=== PATIENT | female | born 1995 | race Caucasian/White ===

== ENCOUNTER 2018-12-14 12:51 | Emergency (ER) | payer OTHER ==
[2018-12-14 12:57] VITALS: BP 116/72
[2018-12-14] MEDS ORDERED: ACETAMINOPHEN 325 MG TABLET PO ONE (13:16)
[2018-12-14] MEDS ORDERED: PSEUDOEPHEDRINE HCL 30 MG TABLET PO ONE (13:17)
[2018-12-14] MEDS ORDERED: GUAIFENESIN 600 MG TABLET.SA PO ONE (13:17)
[2018-12-14] MEDS ORDERED: LORATADINE 10 MG TABLET PO ONE (13:17)
--- NOTE | 2018-12-14 14:12 | ER Document Report ---
ED ENT - General Chief Complaint: Cold Symptoms Stated Complaint: SORE THROAT Time Seen by Provider: 12/14/18 13:04 Mode of Arrival: Ambulatory Information source: Patient Notes: 23-year-old female presented to ED for complaint of cough cold congestion sore throat fever and chills since yesterday. She states she has had nasal drainage with a sore throat. She states she would like to be tested for strep as she feels that her throat is tooth or sore to be just a cold. Patient is alert oriented respirations regular and unlabored speaking in full sentences. She is afebrile at this time. TRAVEL OUTSIDE OF THE [place] IN LAST 30 DAYS: No - HPI Patient complains to provider of: Ear problem, Nose problem, Throat problem Onset: Yesterday Onset/Duration: Intermittent Quality of pain: Achy, Sharp Severity: Mild Pain Level: 2 Context: Recent Illness Location of pain: Ears, Nose, Sinus, Throat Associated symptoms: Chills, Congestion, Cough, Ear pain - Pressure, Runny nose, Sinus pain, Sinus drainage, Sore throat. denies: Fever Similar symptoms previously: No Recently seen / treated by doctor: No - Related Data Allergies/Adverse Reactions: No Known Allergies Allergy (Verified 12/14/18 12:52) Past Medical History - General Information source: Patient - Social History Smoking Status: Former Smoker Chew tobacco use (# tins/day): No Frequency of alcohol use: None Drug Abuse: None Occupation: [employer] Lives with: Family Family History: Reviewed & Not Pertinent Patient has suicidal ideation: No Patient has homicidal ideation: No - Past Medical History Cardiac Medical History: Reports: None Pulmonary Medical History: Reports: Hx Bronchitis EENT Medical History: Reports: None Neurological Medical History: Reports: None Endocrine Medical History: Reports: None Renal/ Medical History: Reports: None Malignancy Medical History: Reports: None GI Medical History: Reports: None Musculoskeletal Medical History: Reports None Skin Medical History: Reports None Psychiatric Medical History: Reports: None Traumatic Medical History: Reports: None Infectious Medical History: Reports: None Past Surgical History: Reports: Hx Section - Immunizations Immunizations up to date: Yes Hx Diphtheria, Pertussis, Tetanus Vaccination: Yes Review of Systems - Review of Systems Constitutional: Chills, Recent illness EENT: Ear pain, Nose discharge, Sinus pressure, Sinus discharge, Throat pain Cardiovascular: No symptoms reported Respiratory: Cough Gastrointestinal: No symptoms reported Genitourinary: No symptoms reported Female Genitourinary: No symptoms reported Musculoskeletal: No symptoms reported Skin: No symptoms reported Hematologic/Lymphatic: No symptoms reported Neurological/Psychological: No symptoms reported -: Yes All other systems reviewed and negative Physical Exam - Vital signs Vitals: Temp Pulse Resp BP Pulse Ox 98.1 F 84 16 116/72 99 12/14/18 12:55 12/14/18 12:55 12/14/18 12:55 12/14/18 12:55 12/14/18 12:55 Interpretation: Normal - General General appearance: Appears well, Alert - HEENT Head: Normocephalic, Atraumatic Eyes: Normal Pupils: PERRL Ears: Normal External canal: Normal Tympanic membrane: Normal Sinus: Normal Nasal: Purulent discharge, Swelling Mouth/Lips: Normal Mucous membranes: Normal Pharynx: Erythema, Post nasal drainage. No: Exudate, Tonsillar hypertrophy Neck: Normal - Respiratory Respiratory status: No respiratory distress Chest status: Nontender Breath sounds: Normal, Nonproductive cough Chest palpation: Normal - Cardiovascular Rhythm: Regular Heart sounds: Normal auscultation Murmur: No - Abdominal Inspection: Normal Distension: No distension Bowel sounds: Normal Tenderness: Nontender Organomegaly: No organomegaly - Back Back: Normal, Nontender - Extremities General upper extremity: Normal inspection, Nontender, Normal color, Normal ROM, Normal temperature General lower extremity: Normal inspection, Nontender, Normal color, Normal ROM, Normal temperature, Normal weight bearing. No: Shady's sign - Neurological Neuro grossly intact: Yes Cognition: Normal Orientation: AAOx4 Edd Coma Scale Eye Opening: Spontaneous [place] Coma Scale Verbal: Oriented Edd Coma Scale Motor: Obeys Commands [place] Coma Scale Total: 15 Speech: Normal Motor strength normal: LUE, RUE, LLE, RLE Sensory: Normal - Psychological Associated symptoms: Normal affect, Normal mood - Skin Skin Temperature: Warm Skin Moisture: Dry Skin Color: Normal Course - Re-evaluation Re-evalutation: 12/14/18 14:10 After performing a Medical Screening Examination, I estimate there is LOW risk for ACUTE CORONARY SYNDROME, RESPIRATORY FAILURE, SEPSIS OR MENINGITIS, thus I consider the discharge disposition reasonable. I have reevaluated this patient multiple times and no significant life threatening changes are noted. The patient and I have discussed the diagnosis and risks, and we agree with discharging home with close follow-up. We also discussed returning to the Emergency Department immediately if new or worsening symptoms occur. We have discussed the symptoms which are most concerning (e.g., changing or worsening pain, trouble swallowing or breathing, neck stiffness, fever) that necessitate immediate return. - Vital Signs Vital signs: Temp Pulse Resp BP Pulse Ox 98.1 F 84 16 116/72 99 12/14/18 12:55 12/14/18 12:55 12/14/18 12:55 12/14/18 12:55 12/14/18 12:55 Discharge - Discharge Clinical Impression: Viral sore throat URI (upper respiratory infection) Qualifiers: URI type: unspecified viral URI Qualified Code(s): J06.9 - Acute upper respiratory infection, unspecified Condition: Stable Disposition: HOME, SELF-CARE Additional Instructions: SORE THROAT: Sore throats may be caused by viruses, bacteria, or fungi. Most are due to a virus, and must get better on their own. Bacterial sore throats, particularly those due to "strep," need treatment with antibiotics. If an antibiotic is prescribed, be sure to take the medication for a full 10 days. Failure to take the antibiotic can result in complications such as rheumatic fever. Sometimes, an injection of antibiotics is given instead of pills or liquid. This single "shot" is equal in effectiveness to the oral medication. To relieve symptoms, take acetaminophen for pain. Sip clear liquids frequently, or eat popsicles or ice chips. Anesthetic sprays or lozenges may help. Make sure the air in the room is not too dry. Avoid using decongestants or antihistamines. Call the doctor if there is no improvement in two days, or if you have difficulty breathing, increasing throat pain, high fever, rash, or frequent vomiting. UPPER RESPIRATORY ILLNESS: You have a viral infection of the respiratory passages -- a "cold." This common infection causes nasal congestion, drainage, and often sore throat and cough. It is highly contagious. The disease usually lasts about 10 to 14 days. There is no "cure" for the viral infection -- it must run its course. If there is a complication, such as bacterial infection in the nose, sinuses, middle ear, or bronchial tubes, antibiotics may be required. The antibiotics won't affect the virus. Drink plenty of fluids. A humidifier may help. An expectorant medication or decongestant may make you more comfortable. Use acetaminophen or ibuprofen for fever or aches. See the doctor if fever persists over two days, if there is any significant worsening of your symptoms, or if you simply fail to improve as expected. USE OF ACETAMINOPHEN (Tylenol): Acetaminophen may be taken for pain relief or fever control. It's much safer than aspirin, offering a wider range of "safe" dosages. It is safe during . Some brand names are Tylenol, Panadol, Datril, Anacin 3, Tempra, and Liquiprin. Acetaminophen can be repeated every four hours. The following are maximum recommended dosages: >89 pounds or adults 650 mg to 900 mg Acetaminophen can be repeated every four hours. Maximum dose not to exceed 4000 mg a day. Claritin 10 mg, Mucinex 600 mg, Sudafed 30 mg and ibuprofen 600 mg will help with your cough cold congestion symptoms. You can also use salt and soda solution gargles as well as Chloraseptic spray and Flonase. These are all [id number] medications. Salt and soda solution 1 quart of water 1 tablespoon of salt 1 teaspoon of baking soda Mixed 3 ingredients together and boil for 1 minute Placed in a covered quart jar Use 1/2 ounce of cold solution to gargle 3 times a day FOLLOW-UP CARE: If you have been referred to a physician for follow-up care, call the physicians office for an appointment as you were instructed or within the next two days. If you experience worsening or a significant change in your symptoms, notify the physician immediately or return to the Emergency Department at any time for re-evaluation. Forms: Return to Work
== END 2018-12-14 14:35 | disposition home or self-care (01) ==
LOC: ER 12:51
DX: J02.8 Acute pharyngitis due to other specified organisms (principal); B97.89 Other viral agents as the cause of diseases classified elsewhere; R05 Cough; R50.9 Fever, unspecified; H92.09 Otalgia, unspecified ear; J34.89 Other specified disorders of nose and nasal sinuses; Z87.891 Personal history of nicotine dependence; R09.82 Postnasal drip
CPT/HCPCS: 87070; 87880; 99283

== ENCOUNTER 2019-08-21 09:33 | Emergency (ER) | payer OTHER ==
--- NOTE | 2019-08-21 10:00 | ER Document Report ---
ED Medical Screen (RME) - General Chief Complaint: Vag Bleeding, +preg <12wks Stated Complaint: BLEEDING WITH Time Seen by Provider: 08/21/19 09:52 Notes: Patient is a G2, P1 23-year-old female who presents emergency department with v aginal bleeding. Patient states that she is 6 weeks and 2 days. Last menstrual cycle was July 09. Patient has history of preeclampsia from her previous . Patient denies any clots, but states that she started bleeding 2 days ago. Patient states that has been on and off and when she wipes she sees blood on the toilet paper. Exam: Soft, nontender abdomen. I have greeted and performed a rapid initial assessment of this patient. A comprehensive ED assessment and evaluation of the patient, analysis of test results and completion of medical decision making process will be conducted by an additional ED providers. TRAVEL OUTSIDE OF THE [place] IN LAST 30 DAYS: No - Related Data Allergies/Adverse Reactions: No Known Allergies Allergy (Verified 12/14/18 12:52) Past Medical History - Social History Chew tobacco use (# tins/day): No Frequency of alcohol use: None Drug Abuse: None Pulmonary Medical History: Reports: Hx Bronchitis Renal/ Medical History: Denies: Hx Peritoneal Dialysis Past Surgical History: Reports: Hx Section - Immunizations Immunizations up to date: Yes Hx Diphtheria, Pertussis, Tetanus Vaccination: Yes Physical Exam - Vital signs Vitals: Temp Pulse Resp BP Pulse Ox 98.0 F 83 14 126/68 H 100 08/21/19 09:40 08/21/19 09:40 08/21/19 09:40 08/21/19 09:40 08/21/19 09:40 Course - Vital Signs Vital signs: Temp Pulse Resp BP Pulse Ox 98.0 F 83 14 126/68 H 100 08/21/19 09:40 08/21/19 09:40 08/21/19 09:40 08/21/19 09:40 08/21/19 09:40
[2019-08-21 10:24] LABS: ABSOLUTE BASOPHILS # (AUTO) 0.1 10^3/uL (0.0-0.2); ABSOLUTE EOSINOPHILS # (AUTO) 0.1 10^3/uL (0.0-0.6); ABSOLUTE LYMPHOCYTES (AUTO) 2.7 10^3/uL (0.5-4.7); ABSOLUTE MONOCYTES (AUTO) 0.4 10^3/uL (0.1-1.4); ABSOLUTE NEUT (AUTO) 5.9 10^3/uL (1.7-8.2); BASOPHILS % (AUTO) 0.9 % (0-2); EOSINOPHILS % (AUTO) 1.3 % (0-6); HEMATOCRIT 39.7 % (36.0-47.0); HEMOGLOBIN 13.4 g/dL (12.0-15.5); MEAN CORPUSCULAR HEMOGLOBIN 28.1 pg (27.0-33.4); MEAN CORPUSCULAR HGB CONC 33.7 g/dL (32.0-36.0); MEAN CORPUSCULAR VOLUME 83 fl (80-97); MONOCYTES % (AUTO) 4.5 % (3-13); PLATELET COUNT 357 10^3/uL (150-450); RED BLOOD COUNT 4.77 10^6/uL (3.72-5.28); RED CELL DISTRIBUTION WIDTH 14.6 % (11.5-14.0); SEGMENTED NEUTROPHILS % (AUTO) 64.3 % (42-78); TOTAL CELLS COUNTED % (AUTO) 100 %; WHITE BLOOD COUNT 9.2 10^3/uL (4.0-10.5)
[2019-08-21 10:43] LABS: ANION GAP 9 (5-19); BLOOD UREA NITROGEN 10 mg/dL (7-20); CALCIUM 9.9 mg/dL (8.4-10.2); CARBON DIOXIDE 26 mmol/L (22-30); CHLORIDE 104 mmol/L (98-107); GLUCOSE 94 mg/dL (75-110)
[2019-08-21 11:08] LABS: APPEARANCE,URINE CLEAR; BILIRUBIN,URINE NEGATIVE (NEGATIVE); COLOR,URINE YELLOW; GLUCOSE, URINE NEGATIVE (NEGATIVE); KETONES,URINE NEGATIVE (NEGATIVE); PROTEIN,URINE NEGATIVE (NEGATIVE); URINE SPECIFIC GRAVITY 1.023; UROBILINOGEN,URINE NEGATIVE mg/dL (<2.0)
--- NOTE | 2019-08-21 12:00 | ER Document Report ---
ED General - General Chief Complaint: Vag Bleeding, +preg <12wks Stated Complaint: BLEEDING WITH Time Seen by Provider: 08/21/19 09:52 Primary Care Provider: ARNALDO CALLAHAN MD [ACTIVE STAFF] - 08/23/19 Mode of Arrival: Ambulatory Information source: Patient Notes: This 23-year-old female presents emergency department with complaints that she is noticed blood when she wipes on and off for the past few weeks. Denies pain with void. She does complain of some light abdominal cramping but feels like it is more like gas. Denies pain at this time. Reports she had preeclampsia with the first but this she is eating and drinking healthy foods. Denies trauma, fever vomiting diarrhea. Reports she took 3 home test that were positive and then went to the [facility] had a positive test there also. Last menstrual period was July 09. TRAVEL OUTSIDE OF THE [place] IN LAST 30 DAYS: No - HPI Onset: Other - For the past few weeks on and off Quality of pain: Cramping Severity: None Pain Level: Denies Associated symptoms: None Exacerbated by: Denies Relieved by: Denies Similar symptoms previously: No Recently seen / treated by doctor: No - Related Data Allergies/Adverse Reactions: No Known Allergies Allergy (Verified 12/14/18 12:52) Past Medical History - General Information source: Patient Last Menstrual Period: 07/09/19 - Social History Smoking Status: Never Smoker Chew tobacco use (# tins/day): No Frequency of alcohol use: None Drug Abuse: None Lives with: Family Family History: Reviewed & Not Pertinent Patient has suicidal ideation: No Patient has homicidal ideation: No Pulmonary Medical History: Reports: Hx Bronchitis Neurological Medical History: Reports: Other - Preeclamptic Renal/ Medical History: Denies: Hx Peritoneal Dialysis Past Surgical History: Reports: Hx Section - Immunizations Immunizations up to date: Yes Hx Diphtheria, Pertussis, Tetanus Vaccination: Yes Review of Systems - Review of Systems Notes: Review HPI for review of systems., All other systems negative Physical Exam - Vital signs Vitals: Temp Pulse Resp BP Pulse Ox 98.0 F 83 14 126/68 H 100 08/21/19 09:40 08/21/19 09:40 08/21/19 09:40 08/21/19 09:40 08/21/19 09:40 - General General appearance: Appears well, Alert In distress: None - HEENT Head: Normocephalic, Atraumatic Eyes: Normal Conjunctiva: Normal Extraocular movements intact: Yes Nasal: Normal Mouth/Lips: Normal Mucous membranes: Moist Neck: Normal, Supple. No: Lymphadenopathy - Respiratory Respiratory status: No respiratory distress Chest status: Nontender Breath sounds: Normal Chest palpation: Normal - Cardiovascular Rhythm: Regular Heart sounds: Normal auscultation Murmur: No - Abdominal Inspection: Normal Distension: No distension Bowel sounds: Normal Tenderness: Nontender Organomegaly: No organomegaly - Back Back: Normal, Nontender - Extremities General upper extremity: Normal ROM, Normal strength General lower extremity: Normal ROM, Normal strength, Normal weight bearing - Neurological Neuro grossly intact: Yes Cognition: Normal Orientation: AAOx4 Edd Coma Scale Eye Opening: Spontaneous [place] Coma Scale Verbal: Oriented [place] Coma Scale Motor: Obeys Commands [place] Coma Scale Total: 15 Speech: Normal Sensory: Normal - Psychological Associated symptoms: Normal affect, Normal mood - Skin Skin Temperature: Warm Skin Moisture: Dry Skin Color: Normal Course - Re-evaluation Re-evalutation: 08/21/19 11:59 23-year-old female G2, P1 presents with blood noted when she wipes for the past 2 weeks that comes and goes. Reports last menstrual period was July 09. Denies pain with void. Denies fever vomiting diarrhea. Reports that she just went to the restroom and did not see any blood at that time. Labs unremarkable waiting for ultrasound. 08/21/19 10:10 08/21/19 10:10 MCV 83 fl (80-97) 08/21/19 10:10 MCH 28.1 pg (27.0-33.4) 08/21/19 10:10 MCHC 33.7 g/dL (32.0-36.0) 08/21/19 10:10 RDW 14.6 % (11.5-14.0) H 08/21/19 10:10 Seg Neutrophils % 64.3 % (42-78) 08/21/19 10:10 Chloride 104 mmol/L (98-107) 08/21/19 10:10 Carbon Dioxide 26 mmol/L (22-30) 08/21/19 10:10 Anion Gap 9 (5-19) 08/21/19 10:10 Est GFR ( Amer) > 60 (>60) 08/21/19 10:10 Glucose 94 mg/dL (75-110) 08/21/19 10:10 Calcium 9.9 mg/dL (8.4-10.2) 08/21/19 10:10 Serum HCG, Qual POSITIVE (NEGATIVE) H 08/21/19 10:10 Urine Color YELLOW 08/21/19 10:10 Urine Appearance CLEAR 08/21/19 10:10 Urine pH 5.0 (5.0-9.0) 08/21/19 10:10 Ur Specific [place] 1.023 08/21/19 10:10 Urine Protein NEGATIVE mg/dL (NEGATIVE) 08/21/19 10:10 Urine Glucose (UA) NEGATIVE mg/dL (NEGATIVE) 08/21/19 10:10 Urine Ketones NEGATIVE mg/dL (NEGATIVE) 08/21/19 10:10 Urine Blood MODERATE (NEGATIVE) H 08/21/19 10:10 Urine RBC (Auto) 1 /HPF 08/21/19 10:10 Blood Type A POSITIVE 08/21/19 10:10 08/21/19 13:24 Patient instructed on all labs and ultrasound of possible ectopic. Patient is a dependent has not obtained an PERSONAL LINES APPRAISER yet. Dr. Jonah Callahan consulted, he was updated on patient's presentation labs and ultrasound. Dr. Callahan plans on reviewing the films. Transvaginal US 08/21/19 09:57 IMPRESSION: 9 x 8 x 8 mm hypoechoic structure with a thick echogenic rim in the left adnexa could represent an ectopic. - Vital Signs Vital signs: Temp Pulse Resp BP Pulse Ox 98.0 F 70 20 100/52 L 99 08/21/19 13:17 08/21/19 13:17 08/21/19 13:17 08/21/19 13:17 08/21/19 13:17 - Laboratory Result Diagrams: 08/21/19 10:10 08/21/19 10:10 Laboratory results interpreted by me: 08/21/19 08/21/19 08/21/19 10:10 10:10 10:10 RDW 14.6 H Serum HCG, Qual POSITIVE H Beta HCG, Quant Urine Blood MODERATE H Urine HCG, Qual POSITIVE H 08/21/19 10:10 RDW Serum HCG, Qual Beta HCG, Quant 357.68 H Urine Blood Urine HCG, Qual - Diagnostic Test Radiology reviewed: Reports reviewed - Consults dr amber callahan Time consulted: 13:24 Reason for consultation: 08/21/19 13:24 ectopic possible 08/21/19 13:49 dr callahan in the ED. advises repeat QUANT Wednesday. Also advised patient follow-up at [facility] Wednesday. Consulted provider: other - will review films Discharge - Discharge Clinical Impression: Vaginal bleeding, , Possible ectopic Condition: Stable Disposition: HOME, SELF-CARE Instructions: Bleeding During Early ([facility]), Ectopic Precaution ([facility]) Additional Instructions: *You have been evaluated for with vaginal bleeding, possible ectopic *The ultrasound noted a possible ectopic but we cannot be sure because you are very early in your . *Please repeat Quant level Wednesday-order for lab is included in your discharge instructions *[facility] Wednesday. Call today for your appointment *Monitor your bleeding and abdominal pain *Return to ED for worsening condition, changes, needs, abdominal pain increased bleeding Monitor your blood pressure. Your blood pressure was elevated today. This may be because you were anxious, in pain or because you need medication. It is important to follow up with your primary care provider for full evaluation. Forms: Elevated Blood Pressure, Follow-Up Laboratory Testing Referrals: ARNALDO CALLAHAN MD [ACTIVE STAFF] - 08/23/19
--- NOTE | 2019-08-21 13:03 | RADIOLOGY REPORT (SQ) ---
EXAM DESCRIPTION: U/S OB TRANSVAG W/DOPPLER COMPLETED DATE/TIME: 08/21/2019 12:37 pm REASON FOR STUDY: Vaginal bleeding; 6 weeks . COMPARISON: None. TECHNIQUE: Transvaginal static and realtime grayscale images acquired of the pelvis. Additional denice cted spectral and color Doppler images recorded. All images stored on PACs. bHC.68 mIU/mL CLINICAL DATES: LMP 07/09/2019. EGA based on LMP 6 weeks 1 day. LIMITATIONS: None. FINDINGS: UTERUS: The uterus is oriented retroverted and it measures 8.4 x 5.6 x 4.8 cm. The endome trium is heterogeneous and it measures approximately 19 mm in thickness. CERVICAL LENGTH: 2 cm. Closed. RIGHT ADNEXA: The right ovary measures 2.8 x 1.5 x 1.3 cm and on Doppler there is intact arterial inf low and venous outflow within the ovarian stroma. There is no adnexal mass. LEFT ADNEXA: The left ovary measures 5.4 x 2.2 x 1.5 cm and on Doppler there is intact arterial inflo w and venous outflow within the ovarian stroma. Adjacent to the ovary, in the left adnexa, there is at 9 x 8 x 8 mm hypoechoic structure with a thick echogenic rim that could represent an ectopic. FREE FLUID: Present. OTHER: No other finding. IMPRESSION: 9 x 8 x 8 mm hypoechoic structure with a thick echogenic rim in the left adnexa could re present an ectopic. COMMENT: This report was called to Charge Nurse in the ED at12:56 on 08/21/2019. TECHNICAL DOCUMENTATION: JOB ID: [id number] [employer]- All Rights Reserved rev-03/11 Reading location - IP/workstation name: [email or web address]
[2019-08-21 13:18] VITALS: BP 100/52
== END 2019-08-21 14:05 | disposition home or self-care (01) ==
LOC: ER 09:33
DX: O20.9 Hemorrhage in early pregnancy, unspecified (principal); O26.891 Other specified pregnancy related conditions, first trimester; R10.9 Unspecified abdominal pain; Z3A.01 Less than 8 weeks gestation of pregnancy
CPT/HCPCS: 36415; 76817; 80048; 81001; 81025; 84702; 84703; 85025; 86900; 86901; 93976; 99284